=== PATIENT | female | born 1985 | race Caucasian/White ===

== ENCOUNTER 2018-07-18 22:43 | Inpatient (IN) | payer OTHER ==
[2018-07-18] MEDS ORDERED: SODIUM CHLORIDE 1,000 ML IV STA (23:18)
--- NOTE | 2018-07-18 23:22 | PDOC ---
History of Present Illness - General Chief Complaint: Pain Stated Complaint: STOMACH PAIN Time Seen by Provider: 07/18/18 23:05 - History of Present Illness Initial Comments: 07/18/18 23:22 32f with no pmh presents to the ED with 3 episodes of bloody diarrhea since this morning, last one was an hour ago. Noticed bright red blood. She ate some shrimps last night bought from [employer] Son had some too, has some for lunch today. Associated with abdominal pain. Denies fevers, dysuria. Is currently on her period. First time this happens to her. Tested negative for last week. 07/18/18 23:25 Past History - Past Medical History Allergies/Adverse Reactions: Allergies Allergy/AdvReac Type Severity Reaction Status Date / Time metoclopramide HCl Allergy Verified 07/18/18 22:57 [From Reglan] Penicillins Allergy Verified 07/18/18 22:57 tramadol Allergy Verified 07/18/18 22:57 Home Medications: Ambulatory Orders Ciprofloxacin [Cipro -] 500 mg PO BID #14 tablet 10/12/15 Ondansetron HCl [Zofran] 4 mg PO TID #10 tablet 10/13/15 COPD: No Other medical history: Pt denies - Suicide/Smoking/Psychosocial Hx Smoking History: Never smoked Have you smoked in the past 12 months: No Information on smoking cessation initiated: No Hx Alcohol Use: No Drug/Substance Use Hx: No Review of Systems - Review of Systems Able to Perform ROS?: Yes Is the patient limited [place]an proficient: No Constitutional: No: Symptoms Reported HEENTM: No: Symptoms Reported Respiratory: No: Symptoms reported Cardiac (ROS): No: Symptoms Reported ABD/GI: Yes: See HPI : No: Symptoms Reported Musculoskeletal: No: Symptoms Reported Integumentary: No: Symptoms Reported All Other Systems: Reviewed and Negative *Physical Exam - Vital Signs Last Vital Signs Temp Pulse Resp BP Pulse Ox 98.2 F 115 H 18 116/74 99 07/18/18 22:58 07/18/18 22:58 07/18/18 22:58 07/18/18 22:58 07/18/18 22:58 - Physical Exam General Appearance: Yes: Nourished, Appropriately Dressed. No: Apparent Distress HEENT: positive: EOMI, AARON, Normal ENT Inspection Respiratory/Chest: positive: Lungs Clear, Normal Breath Sounds. negative: Chest Tender, Respiratory Distress Cardiovascular: positive: Regular Rhythm, S1, S2, Tachycardia Gastrointestinal/Abdominal: positive: Normal Bowel Sounds, Tender (ULQ tenderness. ), Soft Musculoskeletal: positive: Normal Inspection. negative: CVA Tenderness Extremity: positive: Normal Capillary Refill, Normal Inspection, Normal Range of Motion ED Treatment Course - LABORATORY CBC & Chemistry Diagram: 07/18/18 23:45 07/18/18 23:45 Medical Decision Making - Medical Decision Making 07/18/18 23:26 dysentery from bacteria, virus or parasite vs colitis Faheem send labs, give fluids and check stool culture, stool wbc 07/18/18 23:55 Giving iv fluids and tylenol 07/18/18 23:57 Patient signed out to Dr. White. *DC/Admit/Observation/Transfer Diagnosis at time of Disposition: Dysentery - Referrals - Patient Instructions - Post Discharge Activity
[2018-07-18 23:50] LABS: URINE APPEARANCE CLEAR; URINE BILIRUBIN NEGATIVE (NEGATIVE); URINE COLOR YELLOW; URINE GLUCOSE (UA) NEGATIVE (NEGATIVE); URINE KETONE NEGATIVE (NEGATIVE); URINE LEUK ESTERASE NEGATIVE (NEGATIVE); URINE NITRITE NEGATIVE (NEGATIVE); URINE PROTEIN NEGATIVE (NEGATIVE); URINE UROBILINOGEN 0.2 mg/dL (0.2-1.0)
[2018-07-18 23:52] LABS: HCG,QUALITATIVE URINE Negative
[2018-07-18] MEDS ORDERED: ACETAMINOPHEN 1000 MG/100 ML VIAL (NON FORMULARY) IVPB ONE (23:54)
[2018-07-18 23:56] LABS: BASO % 0.5 % (0-2.0); EOS % 1.7 % (0-4.5); HEMATOCRIT 36.9 % (32.4-45.2); HEMOGLOBIN 12.1 GM/dL (10.7-15.3); LYMPH % 15.6 % (8-40); MCH 28.6 pg (25.7-33.7); MCHC 32.8 g/dl (32.0-36.0); MEAN CELL VOLUME 87.1 fl (80-96); MEAN PLT VOLUME 9.6 fl (7.5-11.1); MONO % 7.5 % (3.8-10.2); NEUT % 74.7 % (42.8-82.8); PLATELET COUNT 222 K/MM3 (134-434); RBC 4.24 M/mm3 (3.60-5.2); RDW 14.9 % (11.6-15.6); WHITE BLOOD COUNT 10.9 K/mm3 (4.0-10.0)
[2018-07-19] MEDS ORDERED: ACETAMINOPHEN INJECTION 100 ML IVPB ONE
--- NOTE | 2018-07-19 00:17 | PDOC ---
Attending Attestation - HPI HPI: 07/19/18 00:23 The patient is a 32 YOF with no PMH who presents with abdominal cramping and after having 3 episodes of bloody diarrhea, last episode being 1 hour prior to arrival. She notes that she ate shrimp brought from a supermarket. Other members of her family had the same shrimp but denied similar symptoms. Currrently on her menstrual cycle. Denies fever, chills, nausea, vomit, constipation or urinary symptoms. Allergies: NKA Past surgical history: None reported. Social history: No reported alcohol, drug or cigarette use. - Physicial Exam PE: 07/19/18 00:21 ADULT EXAM GENERAL: Awake, alert, and fully oriented, in no acute distress HEAD: No signs of trauma EYES: PERRLA, EOMI, sclera anicteric, conjunctiva clear ENT: Auricles normal inspection, hearing grossly normal, nares patent, oropharynx clear without exudates. Moist mucosa NECK: Normal ROM, supple, no lymphadenopathy, JVD, or masses LUNGS: Breath sounds equal, clear to auscultation bilaterally. No wheezes, and no crackles HEART: (+) Tachycardic, but regular rhythm, normal S1 and S2, no murmurs, rubs or gallops ABDOMEN: (+) Left lower quadrant tenderness greater than right. (+) Hyperactive bowel sounds. Soft, no guarding, no rebound. No masses EXTREMITIES: Normal range of motion, no edema. No clubbing or cyanosis. No cords , erythema, or tenderness NEUROLOGICAL: Cranial nerves II through XII grossly intact. Normal speech, normal gait SKIN: Warm, Dry, normal turgor, no rashes or lesions noted. <Ju Gibbons - Last Filed: 07/19/18 00:23> - Resident Resident Name: Karl Gloria - ED Attending Attestation I have performed the following: I have examined & evaluated the patient, The case was reviewed & discussed with the resident, I agree w/resident's findings & plan, Exceptions are as noted - Medical Decision Making 07/19/18 02:13 32 yo female who reported temp of 100 earlier today and bloody stools p/w lower abd pain , left > right plan ct scan s/o colitis <Adeline Smith - Last Filed: 07/19/18 02:14>
[2018-07-19 00:39] LABS: PLATELET ESTIMATE ADEQUATE
[2018-07-19 01:25] LABS: ALBUMIN 3.2 g/dl (3.4-5.0); ALK PHOS 92 U/L (45-117); ANION GAP 6 MMOL/L (8-16); BILIRUBIN,TOTAL 0.3 mg/dL (0.2-1); BLOOD UREA NITROGEN 21 mg/dL (7-18); CALCIUM 7.9 mg/dL (8.5-10.1); CHLORIDE 107 mmol/L (98-107); CO2 23 mmol/L (21-32); CREATININE 0.6 mg/dL (0.55-1.3); GLUCOSE,RANDOM 92 mg/dL (74-106); POTASSIUM 3.9 mmol/L (3.5-5.1); SGOT/AST 14 U/L (15-37); SGPT/ALT 14 U/L (13-61); SODIUM 136 mmol/L (136-145); TOT PROT 6.7 g/dl (6.4-8.2)
--- NOTE | 2018-07-19 03:35 | PDOC ---
*Physical Exam - Vital Signs Last Vital Signs Temp Pulse Resp BP Pulse Ox 98.2 F 115 H 18 116/74 99 07/18/18 22:58 07/18/18 22:58 07/18/18 22:58 07/18/18 22:58 07/18/18 22:58 - Physical Exam Gastrointestinal/Abdominal: positive: Normal Bowel Sounds, Tender (RLQ and Suprapubic TTP), Soft. negative: Distended, Guarding, Rebound ED Treatment Course - LABORATORY CBC & Chemistry Diagram: 07/18/18 23:45 07/19/18 00:50 - ADDITIONAL ORDERS Additional order review: Laboratory Results 07/19/18 07/18/18 07/18/18 00:50 23:45 23:40 Sodium 136 Cancelled Potassium 3.9 Cancelled Chloride 107 Cancelled Carbon Dioxide 23 Cancelled Anion Gap 6 L Cancelled BUN 21 H Cancelled Creatinine 0.6 Cancelled Creat Clearance w eGFR 115.85 Cancelled Random Glucose 92 Cancelled Calcium 7.9 L Cancelled Total Bilirubin 0.3 Cancelled Direct Bilirubin Cancelled AST 14 L Cancelled ALT 14 Cancelled Alkaline Phosphatase 92 Cancelled Total Protein 6.7 Cancelled Albumin 3.2 L Cancelled Urine Color Yellow Urine Appearance Clear Urine pH 5.0 Ur Specific [place] 1.021 Urine Protein Negative Urine Glucose (UA) Negative Urine Ketones Negative Urine Blood Negative Urine Nitrite Negative Urine Bilirubin Negative Urine Urobilinogen 0.2 Ur Leukocyte Esterase Negative Urine HCG, Qual Negative 07/18/18 23:45 RBC 4.24 MCV 87.1 MCHC 32.8 RDW 14.9 MPV 9.6 D Neutrophils % 74.7 Lymphocytes % 15.6 D Monocytes % 7.5 Eosinophils % 1.7 D Basophils % 0.5 D - RADIOLOGY Radiology Studies Ordered: Category Date Time Status ABDOMEN & PELVIS CT WITH CONTR [CT] Stat CT Scan 07/19/18 02:12 Taken - Medications Given in the ED: ED Medications Discontinued Medications Generic Name Dose Route Start Last Admin Trade Name Freq PRN Reason Stop Dose Admin Acetaminophen 1,000 mg 07/18/18 23:54 07/19/18 00:06 Ofirmev Injection - IVPB 07/18/18 23:55 1,000 mg ONCE ONE Administration Sodium Chloride 1,000 mls @ 1,000 mls/hr 07/18/18 23:18 07/18/18 23:48 Normal Saline - IV 07/19/18 00:17 1,000 mls/hr ASDIR STA Administration Medical Decision Making - Medical Decision Making Patient Signed out to me from Dr. Gloria Pending CTAP results VS: Tachycardic PCP: Juan Rm CTAP showed 1) 2.4 cm involuting right ovarian cyst with a small amount of pelvic free fluid. 2) Mild colitis 3) possible early appendicitis. Will obtain surgical consult - Dr. Shaw. Dr. Shaw has been consulted and is aware of the patient's situation. Making patient NPO, hydrating well, and will admit to the hospital for Obs *DC/Admit/Observation/Transfer Diagnosis at time of Disposition: Dysentery, Appendicitis, Colitis, Ovarian cyst - Discharge Dispostion Condition at time of disposition: Guarded Decision to Admit order: Yes - Referrals - Patient Instructions - Post Discharge Activity
--- NOTE | 2018-07-19 03:45 | PDOC ---
*Physical Exam - Vital Signs Last Vital Signs Temp Pulse Resp BP Pulse Ox 98.2 F 115 H 18 116/74 99 07/18/18 22:58 07/18/18 22:58 07/18/18 22:58 07/18/18 22:58 07/18/18 22:58 - Physical Exam General Appearance: Yes: Nourished Neck: positive: Trachea midline Respiratory/Chest: positive: Lungs Clear, Normal Breath Sounds Cardiovascular: positive: Regular Rhythm, Regular Rate, S1, S2 Gastrointestinal/Abdominal: positive: Normal Bowel Sounds, Tender (rlq ttp. suprapubic ttp. no rebound no guarding. no cva tenderness. ) Musculoskeletal: positive: Normal Inspection. negative: CVA Tenderness Integumentary: positive: Normal Color, Dry, Warm Neurologic: positive: Fully Oriented, Alert, Normal Mood/Affect Heart Score/ECG Review #1 General ECG Interpretation: Sinus Rhythm, Normal Rate (87), Normal Intervals, No acute ischemic changes ED Treatment Course - LABORATORY CBC & Chemistry Diagram: 07/18/18 23:45 07/19/18 00:50 - ADDITIONAL ORDERS Additional order review: Laboratory Results 07/19/18 07/18/18 07/18/18 00:50 23:45 23:40 Sodium 136 Cancelled Potassium 3.9 Cancelled Chloride 107 Cancelled Carbon Dioxide 23 Cancelled Anion Gap 6 L Cancelled BUN 21 H Cancelled Creatinine 0.6 Cancelled Creat Clearance w eGFR 115.85 Cancelled Random Glucose 92 Cancelled Calcium 7.9 L Cancelled Total Bilirubin 0.3 Cancelled Direct Bilirubin Cancelled AST 14 L Cancelled ALT 14 Cancelled Alkaline Phosphatase 92 Cancelled Total Protein 6.7 Cancelled Albumin 3.2 L Cancelled Urine Color Yellow Urine Appearance Clear Urine pH 5.0 Ur Specific [place] 1.021 Urine Protein Negative Urine Glucose (UA) Negative Urine Ketones Negative Urine Blood Negative Urine Nitrite Negative Urine Bilirubin Negative Urine Urobilinogen 0.2 Ur Leukocyte Esterase Negative Urine HCG, Qual Negative 07/18/18 23:45 RBC 4.24 MCV 87.1 MCHC 32.8 RDW 14.9 MPV 9.6 D Neutrophils % 74.7 Lymphocytes % 15.6 D Monocytes % 7.5 Eosinophils % 1.7 D Basophils % 0.5 D - Medications Given in the ED: ED Medications Discontinued Medications Generic Name Dose Route Start Last Admin Trade Name Freq PRN Reason Stop Dose Admin Acetaminophen 1,000 mg 07/18/18 23:54 07/19/18 00:06 Ofirmev Injection - IVPB 07/18/18 23:55 1,000 mg ONCE ONE Administration Sodium Chloride 1,000 mls @ 1,000 mls/hr 07/18/18 23:18 07/18/18 23:48 Normal Saline - IV 07/19/18 00:17 1,000 mls/hr ASDIR STA Administration Medical Decision Making - Medical Decision Making 07/19/18 03:41 32 yo F no pmhx here with c/o diarreha, bloody stools and abd pain. pt signed out to me at 2:30 am. pt states had shrimp yesterday, today with severe diarrhea. 8 BM's no f/c no urinary complaints. no family h/o crohns or uc, no recent travel or antiobiotics. last meal was 5 pm day prior. pt has mild suprapubic ttp, rlq ttp. pt was pending ct. ct with possible early appendicitis, colitis. d/w [facility]. pt given continued hydration, npo abx, will admit to hospital *DC/Admit/Observation/Transfer Diagnosis at time of Disposition: Dysentery, Appendicitis, Colitis, Ovarian cyst - Discharge Dispostion Condition at time of disposition: Guarded Decision to Admit order: Yes - Referrals - Patient Instructions - Post Discharge Activity
[2018-07-19] MEDS ORDERED: CIPROFLOXACIN 400 MG/D5W 400 MG/200 ML IVPB IVPB ONE (03:49)
[2018-07-19] MEDS ORDERED: SODIUM CHLORIDE 1,000 ML IV SCH (04:00)
[2018-07-19] MEDS: SODIUM CHLORIDE 0.9% 1000 ML INFUS.BAG IV SCH ×3 (04:11→11:24)
--- NOTE | 2018-07-19 08:27 | CONSULT ---
Consult Consult Specialty:: General Surgery Reason for Consultation:: abdominal pain with GI bleed and 2nd colitis? - History of Present Illness Chief Complaint: abdominal pain History of Present Illness: 32yo female no signifincant PMH who presents with abdominal cramping and after having 3 episodes of bloody diarrhea, last episode being 1 hour prior to arrival. She notes that she ate shrimp brought from a supermarket. Other members of her family had the same shrimp but denied similar symptoms. Currently on her menstrual cycle. She has not had similar pain or previous abdominal surgery. we were called to assess. - History Source History Provided By: Patient Limitations to Obtaining History: No Limitations - Alcohol/Substance Use Hx Alcohol Use: No - Smoking History Smoking history: Never smoked Have you smoked in the past 12 months: No Home Medications - Allergies Allergies/Adverse Reactions: Allergies Allergy/AdvReac Type Severity Reaction Status Date / Time metoclopramide HCl Allergy Verified 07/18/18 22:57 [From Reglan] Penicillins Allergy Verified 07/18/18 22:57 tramadol Allergy Verified 07/18/18 22:57 - Home Medications Home Medications: Ambulatory Orders NK [No Known Home Medication] 07/19/18 Review of Systems - Review of Systems Constitutional: reports: Fever. denies: Chills Eyes: denies: Blind Spots, Recent Change in Vision HENT: denies: Difficult Swallowing, Throat Pain Neck: denies: Decreased ROM, Tenderness Cardiovascular: denies: Chest Pain, Palpitations Respiratory: denies: Cough, SOB Gastrointestinal: reports: Abdominal Pain. denies: Constipation, Diarrhea Genitourinary: denies: Burning, Dysuria Breasts: reports: No Symptoms Reported. denies: Pain Musculoskeletal: denies: Back Pain, Crepitus Integumentary: denies: Lesions, Lump Neurological: denies: Seizure, Syncope Endocrine: denies: Unexplained Weight Gain, Unexplained Weight Loss Hematology/Lymphatic: denies: Easily Bruised, Excessive Bleeding Psychiatric: denies: Anxiety, Depression Physical Exam Vital Signs: Vital Signs Temperature 98.2 F 07/19/18 07:44 Pulse Rate 95 H 07/19/18 07:44 Respiratory Rate 16 07/19/18 07:44 Blood Pressure 97/51 L 07/19/18 07:44 O2 Sat by Pulse Oximetry (%) 100 07/19/18 07:44 Constitutional: Yes: Well Nourished, No Distress Eyes: Yes: Conjunctiva Clear, EOM Intact HENT: Yes: Atraumatic, Normocephalic Neck: Yes: Supple, Trachea Midline Cardiovascular: Yes: Regular Rate and Rhythm, S1, S2 Respiratory: Yes: Regular, CTA Bilaterally Gastrointestinal: Yes: Normal Bowel Sounds, Soft, Tenderness. No: Tenderness, Epigastrium Renal/: No: CVA Tenderness - Left, CVA Tenderness - Right Extremities: No: Cool, Cyanosis Edema: No Peripheral Pulses WNL: Yes Integumentary: No: Erythema, Jaundice, Rash Neurological: Yes: Alert, Oriented Psychiatric: Yes: Alert, Oriented Labs: CBC, BMP 07/18/18 23:45 07/19/18 00:50 Problem List - Problems (1) Colitis Assessment/Plan: 32yo female presents with abdominal pain and blood mixed with stool. CTscan shows an enterocolitis which may be secondary to a ruptured cyst. less likely primary appendicitis. blood per rectum is not a typical finding in acute appendicistis. NPO and IVF hydration empiric IV antibiotiotics [facility] medical care Stat [employer] Evalaution - this may be 2nd peritonitis from a ruptured cyst? ID consult Stool studies culture, ova, parasites, Cdiff tox will Review CT scan with radiologist will follow Thank you for the opportunity to participate in the care of this patient. Code(s): K52.9 - NONINFECTIVE GASTROENTERITIS AND COLITIS, UNSPECIFIED (2) Ruptured ovarian cyst Code(s): N83.209 - UNSPECIFIED OVARIAN CYST, UNSPECIFIED SIDE (3) Gastroenteritis Code(s): K52.9 - NONINFECTIVE GASTROENTERITIS AND COLITIS, UNSPECIFIED (4) Enterocolitis Code(s): K52.9 - NONINFECTIVE GASTROENTERITIS AND COLITIS, UNSPECIFIED
--- NOTE | 2018-07-19 09:57 | EKG ---
Test Reason : Blood Pressure : / mmHG Vent. Rate : 087 BPM Atrial Rate : 087 BPM P-R Int : 172 ms QRS Dur : 092 ms QT Int : 354 ms P-R-T Axes : 054 075 042 degrees QTc Int : 425 ms NORMAL SINUS RHYTHM NORMAL ECG NO PREVIOUS ECGS AVAILABLE Confirmed by STARR MAX MD ([id number]) on 07/19/2018 9:56:58 AM Referred By: Confirmed By:STARR MAX MD
[2018-07-19] MEDS: DEXTROSE 5%-0.45% SALINE 1,000 ML IV SCH ×2 (12:28→22:52)
[2018-07-19 13:38] LABS: BASO % 0.5 % (0-2.0); EOS % 1.3 % (0-4.5); HEMATOCRIT 24.6 % (32.4-45.2); LYMPH % 36.5 % (8-40); MCH 28.2 pg (25.7-33.7); MCHC 32.5 g/dl (32.0-36.0); MEAN CELL VOLUME 86.8 fl (80-96); MEAN PLT VOLUME 8.5 fl (7.5-11.1); MONO % 10.1 % (3.8-10.2); NEUT % 51.6 % (42.8-82.8); PLATELET COUNT 200 K/MM3 (134-434); RBC 2.83 M/mm3 (3.60-5.2); RDW 14.7 % (11.6-15.6); WHITE BLOOD COUNT 3.4 K/mm3 (4.0-10.0)
[2018-07-19 14:07] LABS: ALBUMIN 2.9 g/dl (3.4-5.0); ALK PHOS 73 U/L (45-117); ANION GAP 5 MMOL/L (8-16); BILIRUBIN,TOTAL 0.4 mg/dL (0.2-1); BLOOD UREA NITROGEN 9 mg/dL (7-18); CALCIUM 7.3 mg/dL (8.5-10.1); CHLORIDE 112 mmol/L (98-107); CO2 23 mmol/L (21-32); CREATININE 0.6 mg/dL (0.55-1.3); GLUCOSE,RANDOM 77 mg/dL (74-106); POTASSIUM 3.9 mmol/L (3.5-5.1); SGOT/AST 13 U/L (15-37); SGPT/ALT 12 U/L (13-61); SODIUM 140 mmol/L (136-145); TOT PROT 5.8 g/dl (6.4-8.2)
--- NOTE | 2018-07-19 15:17 | CON.ID ---
Consult Consult Specialty:: infectious diseases Referred by:: Reason for Consultation:: colitis - History of Present Illness Chief Complaint: abd pain,bleeding per rectum History of Present Illness: 32yo female no signifincant PMH who presents with abdominal cramping and after having 3 episodes of bloody diarrhea, last episode being 1 hour prior to arrival. She notes that she ate shrimp brought from a supermarket. Other members of her family had the same shrimp but denied similar symptoms. Currently on her menstrual cycle. She has not had similar pain or previous abdominal surgery. feels very weak - History Source History Provided By: Patient Limitations to Obtaining History: Language Barrier - Past Medical History Cardio/Vascular: Yes: HTN - Alcohol/Substance Use Hx Alcohol Use: No - Smoking History Smoking history: Never smoked Have you smoked in the past 12 months: No Home Medications - Allergies Allergies/Adverse Reactions: Allergies Allergy/AdvReac Type Severity Reaction Status Date / Time metoclopramide HCl Allergy Verified 07/18/18 22:57 [From Reglan] Penicillins Allergy Verified 07/18/18 22:57 tramadol Allergy Verified 07/18/18 22:57 - Home Medications Home Medications: Ambulatory Orders NK [No Known Home Medication] 07/19/18 Review of Systems - Review of Systems Constitutional: reports: Weakness Eyes: reports: No Symptoms HENT: reports: No Symptoms Neck: reports: No Symptoms Cardiovascular: reports: No Symptoms Respiratory: reports: No Symptoms Gastrointestinal: reports: Abdominal Pain, Rectal Bleeding, Other Genitourinary: reports: No Symptoms Musculoskeletal: reports: No Symptoms Integumentary: reports: No Symptoms Neurological: reports: No Symptoms Endocrine: reports: No Symptoms Hematology/Lymphatic: reports: No Symptoms Psychiatric: reports: No Symptoms Physical Exam Vital Signs: Vital Signs Temperature 98.6 F 07/19/18 12:36 Pulse Rate 84 07/19/18 12:36 Respiratory Rate 16 07/19/18 12:36 Blood Pressure 99/54 L 07/19/18 12:36 O2 Sat by Pulse Oximetry (%) 100 07/19/18 12:36 Constitutional: Yes: Calm, Mild Distress Eyes: Yes: Conjunctiva Clear Cardiovascular: Yes: Regular Rate and Rhythm Respiratory: Yes: Regular, CTA Bilaterally Gastrointestinal: Yes: Soft, Hypoactive Bowel Sounds, Tenderness, Other ( bleeding) Musculoskeletal: Yes: WNL Extremities: Yes: WNL Neurological: Yes: Alert, Oriented Psychiatric: Yes: Alert, Oriented Labs: CBC, BMP 07/19/18 12:43 07/19/18 12:43 Imaging - Results Cat Scan: Report Reviewed, Image Reviewed Assessment/Plan Problem List - Problems (1) Colitis Assessment/Plan: Code(s): K52.9 - NONINFECTIVE GASTROENTERITIS AND COLITIS, UNSPECIFIED (2) Ruptured ovarian cyst Code(s): N83.209 - UNSPECIFIED OVARIAN CYST, UNSPECIFIED SIDE (3) Gastroenteritis Code(s): K52.9 - NONINFECTIVE GASTROENTERITIS AND COLITIS, UNSPECIFIED (4) Enterocolitis Code(s): K52.9 - NONINFECTIVE GASTROENTERITIS AND COLITIS, UNSPECIFIED plan patient has got multiple abx will await for all the cx to be back hydration rest as per the team
[2018-07-19] MEDS: ONDANSETRON 4 MG/2 ML VIAL IVPUSH PRN (18:37)
--- NOTE | 2018-07-20 02:52 | HP ---
Admitting History and Physical - Admission History of Present Illness: Pt is a 32 y/o female with no pmh presents to the ED with 3 episodes of bloody diarrhea. Pt ate some shrimps the night before. Pt also complains of abdominal pain. Pt denies any fever/chills/nausea/vomiting. Pt had been undergoing infertility treatments and her last cycle of clomid was in 05/08. - Past Medical History Cardiovascular: Yes: HTN - Past Surgical History Past Surgical History: Yes: None - Smoking History Smoking history: Never smoked Have you smoked in the past 12 months: No - Alcohol/Substance Use Hx Alcohol Use: No Home Medications - Allergies Allergies/Adverse Reactions: Allergies Allergy/AdvReac Type Severity Reaction Status Date / Time metoclopramide HCl Allergy Verified 07/18/18 22:57 [From Reglan] Penicillins Allergy Verified 07/18/18 22:57 tramadol Allergy Verified 07/18/18 22:57 - Home Medications Home Medications: Ambulatory Orders NK [No Known Home Medication] 07/19/18 Family Disease History - Family Disease History Family History: Unremarkable Review of Systems - Review of Systems Constitutional: reports: No Symptoms Eyes: reports: No Symptoms HENT: reports: No Symptoms Neck: reports: No Symptoms Cardiovascular: reports: No Symptoms Respiratory: reports: No Symptoms Gastrointestinal: reports: Diarrhea Genitourinary: reports: No Symptoms Physical Examination Vital Signs: Vital Signs Temperature 98.2 F 07/19/18 23:00 Pulse Rate 99 H 07/19/18 23:00 Respiratory Rate 20 07/19/18 23:00 Blood Pressure 115/69 07/19/18 23:00 O2 Sat by Pulse Oximetry (%) 99 07/19/18 23:00 Constitutional: Yes: No Distress HENT: Yes: WNL Neck: Yes: WNL, Supple Cardiovascular: Yes: WNL, Regular Rate and Rhythm Respiratory: Yes: WNL, Regular, CTA Bilaterally Gastrointestinal: Yes: WNL, Normal Bowel Sounds, Soft Musculoskeletal: Yes: WNL Extremities: Yes: WNL Edema: No Neurological: Yes: WNL, Alert, Oriented ...Motor Strength: WNL Labs: CBC, BMP 07/19/18 12:43 07/19/18 12:43 Problem List - Problems (1) Colitis Assessment/Plan: CT scan abd showed ovarian cyst/enterocolitis Surgical consult noted Will get GUN consult Cont IV antibxs as per ID Follow stool studies Advance diet Code(s): K52.9 - NONINFECTIVE GASTROENTERITIS AND COLITIS, UNSPECIFIED (2) Ovarian cyst Assessment/Plan: 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
[2018-07-20] MEDS: ONDANSETRON 4 MG/2 ML VIAL IVPUSH PRN (10:07)
[2018-07-20] MEDS ORDERED: ACETAMINOPHEN 325 MG TABLET (FP) PO ONE (11:45)
[2018-07-20] MEDS: DEXTROSE 5%-0.45% SALINE 1,000 ML IV SCH (11:48)
--- NOTE | 2018-07-20 13:10 | PN ---
Progress Note, Physician History of Present Illness: still with abd pain better than yesterday - Current Medication List Current Medications: Active Medications Levofloxacin (Levaquin 500 Mg Premixed Ivpb -) 500 mg in 100 mls @ 100 mls/hr IVPB DAILY [facility] Last Admin: 07/20/18 10:07 Dose: 100 mls/hr Dextrose/Sodium Chloride (D5-1/2ns -) 1,000 mls @ 75 mls/hr IV ASDIR FRAN Last Admin: 07/20/18 11:48 Dose: 75 mls/hr Ondansetron HCl (Zofran Injection) 4 mg IVPUSH Q8H PRN PRN Reason: NAUSEA Last Admin: 07/20/18 10:07 Dose: 4 mg - Objective Vital Signs: Vital Signs Temperature 98.2 F 07/20/18 09:57 Pulse Rate 86 07/20/18 09:57 Respiratory Rate 19 07/20/18 09:57 Blood Pressure 107/58 L 07/20/18 09:57 O2 Sat by Pulse Oximetry (%) 99 07/19/18 23:00 Constitutional: Yes: Calm, Mild Distress Cardiovascular: Yes: Regular Rate and Rhythm Respiratory: Yes: Regular, CTA Bilaterally Gastrointestinal: Yes: Soft, Hypoactive Bowel Sounds, Tenderness Musculoskeletal: Yes: WNL Extremities: Yes: WNL Neurological: Yes: Alert, Oriented Psychiatric: Yes: Alert, Oriented Labs: CBC, BMP 07/19/18 12:43 07/19/18 12:43 Assessment/Plan Problem List - Problems (1) Colitis Assessment/Plan: Code(s): K52.9 - NONINFECTIVE GASTROENTERITIS AND COLITIS, UNSPECIFIED (2) Ruptured ovarian cyst Code(s): N83.209 - UNSPECIFIED OVARIAN CYST, UNSPECIFIED SIDE (3) Gastroenteritis Code(s): K52.9 - NONINFECTIVE GASTROENTERITIS AND COLITIS, UNSPECIFIED (4) Enterocolitis Code(s): K52.9 - NONINFECTIVE GASTROENTERITIS AND COLITIS, UNSPECIFIED cx report noted plan no abx for now close watch hydration rest as per the team
[2018-07-20 19:11] VITALS: TEMP 98.1
--- NOTE | 2018-07-20 23:50 | PN ---
Progress Note, Physician - Current Medication List Current Medications: Active Medications Levofloxacin (Levaquin 500 Mg Premixed Ivpb -) 500 mg in 100 mls @ 100 mls/hr IVPB DAILY [facility] Last Admin: 07/20/18 10:07 Dose: 100 mls/hr Dextrose/Sodium Chloride (D5-1/2ns -) 1,000 mls @ 75 mls/hr IV ASDIR [facility] Last Admin: 07/20/18 11:48 Dose: 75 mls/hr Ondansetron HCl (Zofran Injection) 4 mg IVPUSH Q8H PRN PRN Reason: NAUSEA Last Admin: 07/20/18 10:07 Dose: 4 mg - Objective Vital Signs: Vital Signs Temperature 98.1 F 07/20/18 19:11 Pulse Rate 82 07/20/18 17:21 Respiratory Rate 18 07/20/18 17:21 Blood Pressure 105/56 L 07/20/18 17:21 O2 Sat by Pulse Oximetry (%) 99 07/20/18 09:00 Labs: CBC, BMP 07/19/18 12:43 07/19/18 12:43
[2018-07-21] MEDS: DEXTROSE 5%-0.45% SALINE 1,000 ML IV SCH (00:43)
[2018-07-21 08:11] LABS: BASO % 0.6 % (0-2.0); EOS % 2.3 % (0-4.5); HEMOGLOBIN 8.9 GM/dL (10.7-15.3); LYMPH % 29.3 % (8-40); MCH 28.3 pg (25.7-33.7); MCHC 32.9 g/dl (32.0-36.0); MEAN PLT VOLUME 8.6 fl (7.5-11.1); MONO % 9.7 % (3.8-10.2); NEUT % 58.1 % (42.8-82.8); PLATELET COUNT 227 K/MM3 (134-434); RBC 3.14 M/mm3 (3.60-5.2); RDW 14.6 % (11.6-15.6); WHITE BLOOD COUNT 3.1 K/mm3 (4.0-10.0)
[2018-07-21 08:36] LABS: ALBUMIN 3.4 g/dl (3.4-5.0); ALK PHOS 79 U/L (45-117); ANION GAP 5 MMOL/L (8-16); BILIRUBIN,TOTAL 0.5 mg/dL (0.2-1); BLOOD UREA NITROGEN 6 mg/dL (7-18); CALCIUM 8.6 mg/dL (8.5-10.1); CHLORIDE 108 mmol/L (98-107); CO2 25 mmol/L (21-32); CREATININE 0.7 mg/dL (0.55-1.3); GLUCOSE,RANDOM 91 mg/dL (74-106); POTASSIUM 3.7 mmol/L (3.5-5.1); SGOT/AST 12 U/L (15-37); SGPT/ALT 15 U/L (13-61); SODIUM 137 mmol/L (136-145); TOT PROT 6.9 g/dl (6.4-8.2)
--- NOTE | 2018-07-21 09:17 | CON.OBG ---
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 SHe has had a cycle of clomid and will fu with her ob. The cyst is involuting, physiologic in nature and no fu needed at this time - History Source History Provided By: Patient Limitations to Obtaining History: No Limitations - Past Medical History SITE LEADER: No: Alzheimer's, CVA, Dementia, Migraine, Multiple Sclerosis, Peripheral Neuropathy, Parkinson's, Seizure, Syncope, TIA, Vertigo, Other Cardio/Vascular: Yes: HTN Pulmonary: No: Asthma, Bronchitis, Cancer, COPD, O2 Dependent, Pneumonia, Previously Intubated, Pulmonary Embolus, Pulmonary Fibrosis, Sleep Apnea, Other Gastrointestinal: No: Ascites, Cancer, Constipation, Crohn's Disease, Diverticulitis, Diverticulosis, Esophageal Varices, Gastritis, GERD, GI Bleed, Hemorrhoids, Hiatal Hernia, Inflamatory Bowel Disease, Irritable Bowel Disease, Pancreatitis, Peptic Ulcer Disease, Ulcerative Colitis, Other Hepatobiliary: No: Cirrhosis, Cholelithiasis, Cholecystitis, Choledocholithiasis , Hepatitis A, Hepatitis B, Hepatitis C, Other Renal/: No: Renal Failure, Renal Inusuff, BPH, Cancer, Hematuria, Hemodialysis , Neurogenic Bladder, Renal Calculi, UTI, Other Reproductive: No: Ectopic , Endometriosis, Fibroids, PID, Polycystic Ovary Syndrome, Postmenopausal, Other Heme/Onc: No: Anemia, B12 Deficiency, Bleeding Disorder, Cancer, Current Chemotherapy, Current Radiation Therapy, Hemochromatosis, Hypercoaguable State, Myeloproliferative Synd, Sickle Cell Disease, Sickle Cell Trait, Thrombocytopenia, Other Infectious Disease: No: AIDS, C-Diff, Herpes Zoster, HIV, MRSA, STD's, Tuberculosis, VREF, Other Psych: No: Addictions, Anxiety, Bipolar, Depression, Panic, Psychosis, Schizophrenia, Other Musculoskeletal: No: Bursitis, Chronic low back pain, Hemiparesis, Hemiplegia, Osteoarthritis, Paraplegia, Other Rheumatology: No: Fibromyalgia, Gout, Lupus, Rheumatoid Arthritis, Sarcoidosis, Vasculitis, Other ENT: No: Allergic Rhinitis, Sinusitis, Other Endocrine: No: Lewis's Disease, Deric's Disease, Diabetes Insipidus, Diabetes Mellitus, Hyperparathyroidism, Hyperthyroidism, Hypothyroidism, Osteopenia, SIADH, Other Dermatology: No: Basal Cell, Cellulitis, Eczema, Melanoma, Psoriasis, Squamous Cell, Other - Past Surgical History Past Surgical History: Yes: None - Alcohol/Substance Use Hx Alcohol Use: No History of Substance Use: denies: None, Cocaine, Heroin, Marijuana, Prescription , Tranquilizers - Smoking History Smoking history: Never smoked Have you smoked in the past 12 months: No Home Medications - Allergies Allergies/Adverse Reactions: Allergies Allergy/AdvReac Type Severity Reaction Status Date / Time metoclopramide HCl Allergy Verified 07/18/18 22:57 [From Reglan] Penicillins Allergy Verified 07/18/18 22:57 tramadol Allergy Verified 07/18/18 22:57 - Home Medications Home Medications: Ambulatory Orders NK [No Known Home Medication] 07/19/18 Review of Systems - Review of Systems Constitutional: denies: No Symptoms, Chills, Diaphoresis, Fever, Lethargy, Loss of Appetite, Malaise, Night Sweats, Unintentional Wgt. Loss, Weakness, Other Eyes: denies: No Symptoms, Blind Spots, Blurred Vision, Double Vision, Eye Pain , Floaters, Photophobia, Recent Change in Vision, Other HENT: denies: No Symptoms, Difficult Swallowing, Ear Discharge, Ear Pain, Epistaxis, Gingival Bleeding, Hearing Loss, Mouth Swelling, Nasal Congestion, Ocular Prosthesis, Throat Pain, Toothache, Ringing in Ears, Other Neck: denies: No Symptoms, Decreased ROM, Lumps, Pain on Movement, Stiffness, Swollen Glands, Tenderness, Other Cardiovascular: denies: No Symptoms, Chest Pain, Edema, Palpitations, Shortness of Breath, Other Respiratory: denies: No Symptoms, Cough, Exercise Intolerance, Hemoptysis, Orthopnea, PND, Snoring, SOB, SOB on Exertion, Wheezing, Other Gastrointestinal: denies: No Symptoms, Abdominal Pain, Bloating, Constipation, Diarrhea, Dysphagia, Indigestion, Melena, Nausea, Rectal Bleeding, Vomiting, Vomiting Blood, Other Genitourinary: denies: No Symptoms, Burning, Discharge, Dysuria, Flank Pain, Frequency, Hematuria, Incontinence, Lesions, Menses, Pain, Testicular Mass, Testicular Pain, Testicular Swelling, Urgency, Vaginal Bleeding, Other Breasts: denies: No Symptoms Reported, See HPI, Breast Implants, Discharge from Nipple, Lumps, Pain, Skin Changes, Other Musculoskeletal: denies: No Symptoms, Back Pain, Crepitus, Decreased ROM, Extremity Pain, Joint Pain, Joint Swelling, Muscle Pain, Muscle Cramps, Muscle Weakness, Other Integumentary: denies: No Symptoms, Blister, Bruising, Change in Color, Eczema, Erythema, Incision, Lesions, Lump, Pallor, Pruritis, Rash, Wound, Other Neurological: denies: No Symptoms, Change in LOC, Change in Speech, Confusion, Dizziness, Headache, Incoordination, Numbness, Parasthesia, Pre-Existing Deficit , Seizure, Syncope, Tremors, Unsteady Gait, Weakness, Other Endocrine: denies: No Symptoms, Excessive Sweating, Flushing, Increased Hunger, Increased Thirst, Intolerance to Cold, Intolerance to Heat, Unexplained Weight Gain, Unexplained Weight Loss, Other Hematology/Lymphatic: denies: No Symptoms, Easily Bruised, Excessive Bleeding, Swollen Glands, Other Psychiatric: denies: No Symptoms, Altered Sleep Pattern, Anxiety, Depression, Hallucinations, Panic, Paranoia, Suicidal, Other Physical Exam-HAMMERER TAB Vital Signs: Vital Signs Temperature 98.1 F 07/21/18 06:00 Pulse Rate 68 07/21/18 06:00 Respiratory Rate 18 07/21/18 06:00 Blood Pressure 128/54 L 07/21/18 06:00 O2 Sat by Pulse Oximetry (%) 99 07/20/18 09:00 Constitutional: Yes: Well Nourished Eyes: Yes: WNL HENT: Yes: WNL Neck: Yes: WNL Cardiovascular: Yes: WNL Respiratory: Yes: WNL Gastrointestinal: Yes: WNL ...Rectal Exam: Yes: WNL Pelvis: Yes: WNL External Genitalia: Yes: Normal Vaginal Exam: Yes: Normal Cervix: Yes: Normal Labs: CBC, BMP 07/21/18 07:00 07/21/18 07:00 Assessment/Plan as above no fu needed at this time may fu with ob for clomid/fertility treatments
--- NOTE | 2018-07-21 11:18 | PN ---
Progress Note, Physician - Current Medication List Current Medications: Active Medications Levofloxacin (Levaquin 500 Mg Premixed Ivpb -) 500 mg in 100 mls @ 100 mls/hr IVPB DAILY [facility] Last Admin: 07/21/18 09:41 Dose: 100 mls/hr Dextrose/Sodium Chloride (D5-1/2ns -) 1,000 mls @ 75 mls/hr IV [facility] Last Admin: 07/21/18 00:43 Dose: 75 mls/hr Ondansetron HCl (Zofran Injection) 4 mg IVPUSH Q8H PRN PRN Reason: NAUSEA Last Admin: 07/20/18 10:07 Dose: 4 mg - Objective Vital Signs: Vital Signs Temperature 98.1 F 07/21/18 06:00 Pulse Rate 68 07/21/18 06:00 Respiratory Rate 18 07/21/18 06:00 Blood Pressure 128/54 L 07/21/18 06:00 O2 Sat by Pulse Oximetry (%) 99 07/20/18 09:00 Labs: CBC, BMP 07/21/18 07:00 07/21/18 07:00
[2018-07-21 13:00] VITALS: BMI 19.5
[2018-07-21 13:40] VITALS: BP 108/57; PULSE 95
== END 2018-07-21 15:41 | disposition home or self-care (01) | DRG 532 ==
LOC: JER 22:43 → JERBED 07-19 03:40 → OBSVTOIN 07-19 11:24 → J5S 07-19 20:52
PROVIDERS: ADMIT Internal Medicine; ATTEND Internal Medicine
DX: N83.209 Unspecified ovarian cyst, unspecified side (principal); I10 Essential (primary) hypertension; K52.9 Noninfective gastroenteritis and colitis, unspecified
CPT/HCPCS: 36415; 74177-TC; 80053; 81003; 84703; 85025; 86850; 86900; 86901; 87045; 87046; 87205; 87427; 93005; 93010; 99284-25; G0378; J0131; J7030